=== PATIENT | male | born 1960 | race Caucasian/White ===

== ENCOUNTER 2020-04-11 07:49 | Inpatient (IN) | payer OTHER ==
[~2020-04-11 07:49] MED LIST: MEDROL 4MG DOSEP4 MG PO; METFORMIN HCL500 MG PO
[2020-04-11 08:25] LABS: BASOPHIL 0.3 % (0-2); EOSINOPHIL 0.4 % (0-5); HCT 56.6 % (42.0-52.0); HGB 17.7 g/dl (13.2-18.0); LYMPHOCYTE 14.8 % (15-48); MCHC 31.3 g/dL (32.0-36.0); MCV 92.6 fL (78.0-100.0); MONOCYTE 4.3 % (0-12); NEUTROPHIL 79.5 % (41-80); PLT 277 K/uL (150-400); RBC 6.11 M/uL (4.70-6.00); RDW 15.7 % (11.5-14.0); WBC 25.2 K/uL (4.0-10.5)
[2020-04-11 08:30] LABS: NRBC 0
[2020-04-11 09:15] LABS: ALBUMIN 3.6 g/dL (3.4-5.0); BILIRUBIN - TOTAL 1.2 mg/dL (0.2-1.0); BUN/CREAT RATIO (CALC) 15.9 RATIO; CREATININE 1.38 mg/dL (0.67-1.17); POTASSIUM 4.4 mmol/L (3.5-5.1); TOTAL PROTEIN 6.6 g/dL (6.4-8.2)
[2020-04-11 09:19] LABS: LACTIC ACID 5.1 mmol/L (0.4-1.9)
[2020-04-11 11:32] LABS: BILIRUBIN NEGATIVE (NEGATIVE); BLOOD NEGATIVE Ery/uL (NEGATIVE); CLARITY CLEAR (CLEAR); COLOR YELLOW (YELLOW); GLUCOSE (U) NORMAL (NORMAL); LEUKOCYTES NEGATIVE Leu/uL (NEGATIVE); NITRITE NEGATIVE (NEGATIVE); PROTEIN 1+ mg/dL (NEGATIVE); SPECIFIC GRAVITY <=1.005 (1.001-1.030); UROBILINOGEN 0.2 mg/dL (0.2-1.0); pH 6.5 (5.0-9.0)
[2020-04-11 11:38] LABS: BACTERIA TRACE; GRANULAR CASTS TRACE; SQUAMOUS EPITHELIAL CELLS RARE; URINARY RBC RARE
[2020-04-11] MEDS ORDERED: ZOCOR20 MG PO (15:02)
[2020-04-11] MEDS ORDERED: GLUCOTROL5 MG PO ×2 (15:02→17:38)
[2020-04-11] MEDS ORDERED: ATENOLOL25 MG PO ×2 (15:03→17:41)
[2020-04-11] MEDS ORDERED: PRINIVIL20 MG PO ×2 (15:03→17:42)
[2020-04-11] MEDS ORDERED: NORVASC5 MG PO ×2 (15:04→17:41)
[2020-04-11] MEDS ORDERED: METFORMIN HCL500 M2 PO (17:39)
[2020-04-11] MEDS ORDERED: SIMVASTATIN20 MG PO (17:40)
[2020-04-12 05:38] LABS: BASOPHIL 0.3 % (0-2); EOSINOPHIL 1.9 % (0-5); HCT 45.3 % (42.0-52.0); LYMPHOCYTE 27.8 % (15-48); MCH 28.6 pg (25.0-31.0); MCHC 30.9 g/dL (32.0-36.0); MCV 92.4 fL (78.0-100.0); MONOCYTE 5.4 % (0-12); MPV 10.2 fL (6.0-9.5); NEUTROPHIL 64.4 % (41-80); NRBC 0; PLT 185 K/uL (150-400); RDW 14.8 % (11.5-14.0); WBC 9.6 K/uL (4.0-10.5)
[2020-04-12 05:56] LABS: BILIRUBIN - TOTAL 0.9 mg/dL (0.2-1.0); BUN/CREAT RATIO (CALC) 15.7 RATIO; CREATININE 0.89 mg/dL (0.67-1.17); GLOBULIN (CALCULATION) 2.8 g/dL; TOTAL PROTEIN 5.8 g/dL (6.4-8.2)
[2020-04-13 05:02] LABS: BASOPHIL 0.6 % (0-2); HGB 15.1 g/dl (13.2-18.0); LYMPHOCYTE 37.7 % (15-48); MCH 29.5 pg (25.0-31.0); MCHC 32.1 g/dL (32.0-36.0); MCV 91.8 fL (78.0-100.0); MONOCYTE 5.7 % (0-12); NEUTROPHIL 52.9 % (41-80); NRBC 0; PLT 195 K/uL (150-400); RBC 5.12 M/uL (4.70-6.00); RDW 14.6 % (11.5-14.0); WBC 7.9 K/uL (4.0-10.5)
[2020-04-13 05:18] LABS: BUN/CREAT RATIO (CALC) 18.2 RATIO; CREATININE 0.88 mg/dL (0.67-1.17); POTASSIUM 3.8 mmol/L (3.5-5.1)
[2020-04-13] MEDS ORDERED: PRINIVIL20 MG PO (11:03)
[2020-04-13] MEDS ORDERED: NORVASC5 MG PO (11:03)
[2020-04-13] MEDS ORDERED: DIGITEK125 MCG PO (11:03)
[2020-04-13] MEDS ORDERED: LOPRESSOR25 MG PO (11:03)
[2020-04-13] MEDS ORDERED: ELIQUIS5 MG PO (11:03)
[2020-04-13] MEDS ORDERED: AUGMENTIN 875-1 EACH PO (11:10)
== END 2020-04-13 12:10 | disposition home or self-care (01) | DRG 392 ==
LOC: FER 07:49 → FTCU 11:28
PROVIDERS: Emergency Medicine; ADMIT Internal Medicine
DX: K52.9 Noninfective gastroenteritis and colitis, unspecified (principal); N17.9 Acute kidney failure, unspecified; I95.1 Orthostatic hypotension; I10 Essential (primary) hypertension; I48.0 Paroxysmal atrial fibrillation; Z20.822 Contact with and (suspected) exposure to COVID-19; E78.5 Hyperlipidemia, unspecified; E11.9 Type 2 diabetes mellitus without complications; Z79.84 Long term (current) use of oral hypoglycemic drugs; Z79.899 Other long term (current) drug therapy; E86.0 Dehydration; Z96.641 Presence of right artificial hip joint; A08.4 Viral intestinal infection, unspecified
CPT/HCPCS: 36415; 71045; 80048; 80053; 81001; 82962; 83605; 83690; 84145; 84443; 84484; 85025; 87040; 93005; J2543; J7030; J7050; Q9967; U0002

== ENCOUNTER 2020-11-08 10:29 | Emergency (ER) | payer OTHER ==
[~2020-11-08 10:29] MED LIST changes: +ATENOLOL25 MG PO; +AUGMENTIN 875-1 EACH PO; +DIGITEK125 MCG PO; +ELIQUIS5 MG PO; +GLUCOTROL5 MG PO; +LOPRESSOR25 MG PO; +METFORMIN HCL500 M2 PO; +NORVASC5 MG PO; +PRINIVIL20 MG PO; +SIMVASTATIN20 MG PO; +ZOCOR20 MG PO
== END 2020-11-08 11:55 | disposition home or self-care (01) ==
LOC: FER 10:29
DX: M25.551 Pain in right hip (principal)
CPT/HCPCS: 73502

== ENCOUNTER 2021-01-31 11:18 | Emergency (ER) | payer OTHER ==
[~2021-01-31] VITALS: Ht 170.2 cm; Wt 71.7 kg
[2021-01-31 11:54] LABS: BASOPHIL 0.7 % (0-2); EOSINOPHIL 2.3 % (0-5); HCT 42.5 % (42.0-52.0); HGB 13.2 g/dl (13.2-18.0); LYMPHOCYTE 35.4 % (15-48); MCH 29.1 pg (25.0-31.0); MCHC 31.1 g/dL (32.0-36.0); MCV 93.8 fL (78.0-100.0); MONOCYTE 6.2 % (0-12); NRBC 0; PLT 235 K/uL (150-400); RBC 4.53 M/uL (4.70-6.00); RDW 15.5 % (11.5-14.0); WBC 8.6 K/uL (4.0-10.5)
[2021-01-31 12:10] LABS: INR 1.29 (0.9-1.2); PROTHROMBIN TIME 15.4 SECONDS (11.8-13.4); PTT 29.7 SECONDS (24.4-34.7)
[2021-01-31 13:15] LABS: ALBUMIN 3.1 g/dL (3.4-5.0); BILIRUBIN - TOTAL 0.8 mg/dL (0.2-1.0); BUN/CREAT RATIO (CALC) 26.7 RATIO; CREATININE 0.86 mg/dL (0.67-1.17); GLOBULIN (CALCULATION) 3.2 g/dL; TOTAL PROTEIN 6.3 g/dL (6.4-8.2)
[2021-01-31] MEDS ORDERED: CYCLOBENZAPRINE10 MG PO (14:34)
[2021-01-31] MEDS ORDERED: NORCO 5-325 TA1 EACH PO ×2 (14:34→14:40)
== END 2021-01-31 14:50 | disposition home or self-care (01) ==
LOC: FER 11:18
PROVIDERS: Internal Medicine
DX: R07.89 Other chest pain (principal); I10 Essential (primary) hypertension; I48.91 Unspecified atrial fibrillation
CPT/HCPCS: 36415; 71045; 71275; 80053; 84484; 85025; 85610; 85730; 93005; J2930; J7030; Q9967

== ENCOUNTER → 2021-03-20 | Day surgery (SDC) | payer OTHER ==
[~2021-03-20] VITALS: Ht 170.2 cm; Wt 74.4 kg
[~2021-03-20] MED LIST changes: +CYCLOBENZAPRINE10 MG PO; +NORCO 5-325 TA1 EACH PO
== END | disposition home or self-care (01) ==
LOC: FAS 01-09 09:00
DX: Z12.11 Encounter for screening for malignant neoplasm of colon (principal); K64.4 Residual hemorrhoidal skin tags; I10 Essential (primary) hypertension; E11.9 Type 2 diabetes mellitus without complications; E78.00 Pure hypercholesterolemia, unspecified; I48.91 Unspecified atrial fibrillation; E78.5 Hyperlipidemia, unspecified; Z79.01 Long term (current) use of anticoagulants; Z79.84 Long term (current) use of oral hypoglycemic drugs; Z79.899 Other long term (current) drug therapy
CPT/HCPCS: J2704; J7120